=== PATIENT | male | born 1955 ===

== ENCOUNTER → 2020-07-12 13:21 | Outpatient (BNVA) | payer OTHER, SELFPAY | PROVIDERS: PCP Family Medicine; Visit Provider Urology ==

== ENCOUNTER 2021-01-01 13:03 | Outpatient (REF) | payer OTHER, SELFPAY | END 2021-01-01 13:04 | disposition home or self-care (01) | LOC: HO.LAB 13:03 | PROVIDERS: PCP Family Medicine; Visit Provider Internal Medicine | DX: Z20.822 Contact with and (suspected) exposure to COVID-19 (principal) | CPT/HCPCS: C9803; U0003; U0005 ==

== ENCOUNTER → 2021-02-28 09:45 | Outpatient (BNVA) | payer OTHER, SELFPAY | PROVIDERS: PCP Family Medicine; Visit Provider Urology ==

== ENCOUNTER → 2021-03-07 08:53 | Outpatient (BNVA) | payer OTHER, SELFPAY | PROVIDERS: PCP Family Medicine; Visit Provider Urology ==

== ENCOUNTER → 2021-09-11 08:53 | Outpatient (BNVA) | payer OTHER, SELFPAY | PROVIDERS: PCP Family Medicine; Visit Provider Urology | DX: E29.1 Testicular hypofunction (principal) ==

== ENCOUNTER → 2022-10-01 14:10 | Outpatient (BNVA) | payer OTHER, SELFPAY | PROVIDERS: PCP Family Medicine; Visit Provider Urology ==

== ENCOUNTER 2023-04-02 08:43 | Outpatient (AMB) | payer OTHER, SELFPAY ==
--- NOTE | 2023-04-02 08:55 | A.OFFVIS_ITS ---
Intake Intake Visit Reasons: 6M Labs(set) Intake Note: Patient is Present for Telephone Follow Up Labs Urology Med: Tadalafil, Testosterone Antibiotic Allergy: None Blood Thinner: None Allergies No Known Allergies [No Known Allergies*] Allergy (Verified 04/02/23 08:55) HPI HPI Comments History of Present Illness Details Woody is a pleasant male. He is a patient of Dr. Araujo. He is seen for following urologic conditions - hypogonadism - nephrolithiasis - erectile dysfunction Telemedicine Evaluation 15 min Consultation [facility] Jenna Video attempted Testosterone stable Hematocrit has been rising and is now borderline elevated at 53.3 Did discuss trial of Xyosted Prescription provided Six month follow-up lab work Hypogonadism Diagnosis number of years ago Failed AndroGel therapy Stable on injection therapy 0.4 cc every 1 weeks subq Injection day Friday - lab work should be or Friday Recent lab work - 07/09 T 1400, 01/09 T 356 2.7 51, 08/10 H 51, 03/12 627 P 2.5, 10/11 P 3.3, 04/12 692 2.8 53 Follow in 6 months with testosterone, PSA and CBC Nephrolithiasis Prior history asymptomatic stones Sample provided in 2018 calcium oxalate monohydrate Imaging - 02/08 renal ultrasound under no evidence of disease, 40 g prostate PFSH Medical History Rheumatoid arthritis Nocturia Renal stones BPH w/o urinary obs/LUTS Hypogonadism in male Surgical History History of cataract surgery History of colonoscopy Family History Father No problems noted. Mother No problems noted. Social History Alcohol intake: former Patient Tobacco Use Status: Former Tobacco user Review of Systems Const All systems reviewed & are unremarkable except as noted in HPI and below Reports no additional complaints Resp Reports no additional complaints GI Reports no additional complaints Reports as per HPI Musc Reports no additional complaints Physical Exam Telemedicine evaluation Appropriate responses Regular breathing rate and rhythm HEENT Head: Yes normal to inspection Ears: hearing grossly normal bilaterally Eyes General: appearance normal, both eyes and all related structures Neck Neck: Yes normal visual inspection Chest Chest palpation & inspection: normal inspection of the chest Resp Effort & Inspection: normal respiratory effort and able to speak in complete sentences Assessment & Plan Assessment & Plan (1) Elevated hematocrit: Code(s): R71.8 - Other abnormality of red blood cells (2) Hypogonadism in male: Code(s): E29.1 - Testicular hypofunction Plan Switch testosterone formulation to try to reduce hematocrit peak Orders: Orders Complete Blood Count no Diff 6 Months E29.1 - Testicular hypofunction Prostate Specific Antigen 6 Months E29.1 - Testicular hypofunction Testosterone, Total 6 Months E29.1 - Testicular hypofunction Medications: New testosterone enanthate (Xyosted) 75 mg (0.75 mL) subcut Q7D 3 mL 5RF 28 days Patient Instructions: Imaging studies, laboratory and physical exam results were discussed and reviewed in detail. No major barriers to patient understanding were identified. An opportunity to ask questions regarding the treatment plan was provided. All questions were answered. The patient expressed understanding and agreement with the above treatment plan. The patient is aware they should contact our office by phone for worsening of their current condition or the appearance of new urologic symptoms. Compliance is encouraged with any medications and followup testing that is ordered. It is a privilege to participate in the urologic care of your patient. If you have any questions or concerns regarding treatment for the above conditions, or other urologic issues, please do not hesitate to contact me. The office telephone contact is [phone]. This note is constructed using voice recognition software. While every effort has been made to ensure accuracy chocolate finisher operator errors may have been included. Yours sincerely, Dr Petros Gibson MD, [facility] - Urology Providers of Expert, Compassionate Care for the Genitourinary System Telehealth Telehealth Location of provider rendering services: practice address Location of patient: address on file Patient Identification confirmed using: Name, : Yes Telehealth method: video Patient verbally consented to treatment: Yes Patient verbally consented to billing insurance company: Yes Patient informed of any privacy concerns related to visit: Yes Coding Level of Care Code Tele Est Pt Level 4 (05521) Diagnoses Elevated hematocrit R71.8 Hypogonadism in male E29.1
== END 2023-04-02 09:57 | disposition home or self-care (01) ==
LOC: HO.HUSH 08:43
PROVIDERS: PCP Family Medicine; Visit Provider Urology
DX: R71.8 Other abnormality of red blood cells (principal); E29.1 Testicular hypofunction
CPT/HCPCS: 99214

== ENCOUNTER → 2023-04-02 08:43 | Outpatient (BNVA) | payer OTHER, SELFPAY | PROVIDERS: PCP Family Medicine; Visit Provider Urology ==

== ENCOUNTER → 2023-06-13 09:58 | Outpatient (BNVA) | payer OTHER, SELFPAY | PROVIDERS: PCP Family Medicine; Visit Provider Urology ==

== ENCOUNTER 2023-10-03 14:43 | Outpatient (AMB) | payer OTHER, SELFPAY ==
--- NOTE | 2023-10-03 15:17 | MHC.OFFVIS ---
Intake Visit Reasons: 6m/labs(set) Intake Note: Patient is Present for Follow Up Labs Urology Medication: Antibiotic Allergies: Blood Thinners: Allergies No Known Allergies [No Known Allergies*] Allergy (Verified 10/03/23 15:21) Medication List - Last Reconciled 10/03/23 by Petros Gibson MD etanercept mg subcut QWEEK folic acid 1 mg PO DAILY methotrexate sodium 20 mg PO QWEEK oxycodone 5 mg PO QID PRN prednisone 5 mg PO DAILY simvastatin 40 mg PO BEDTIME syringe with needle (BD Tuberculin Syringe) As directed once weekly syringe with needle As directed weekly tadalafil 20 mg PO DAILY 30 days testosterone enanthate 75 mg (0.5 mL) subcut QWEEK 28 days zolpidem 10 mg PO BEDTIME PRN HPI Comments Details: Woody is a pleasant male. He is a patient of Dr. Araujo. He is seen for following urologic conditions - hypogonadism - nephrolithiasis - erectile dysfunction Wonderful response desire stent Hematocrit decline 51 Testosterone 600 Six-month follow-up lab work Hypogonadism Diagnosis number of years ago Failed AndroGel therapy Stable on injection therapy 0.4 cc every 1 weeks subq Injection day Friday - lab work should be or Friday Recent lab work - 07/09 T 1400, 01/09 T 356 2.7 51, 08/10 H 51, 03/12 627 P 2.5, 10/11 P 3.3, 04/12 692 2.8 09/11 589 2.7 Follow in 6 months with testosterone, PSA and CBC Nephrolithiasis Prior history asymptomatic stones Sample provided in 2018 calcium oxalate monohydrate Imaging - 02/08 renal ultrasound under no evidence of disease, 40 g prostate PFSH Medical History Rheumatoid arthritis Nocturia Renal stones BPH w/o urinary obs/LUTS Hypogonadism in male Surgical History History of cataract surgery History of colonoscopy Family History Father No problems noted. Mother No problems noted. Social History Alcohol intake: former Patient Tobacco Use Status: Former Tobacco user Review of Systems Const Denies chills and Denies fever(s) Card Reports no additional complaints and Denies syncope Resp Denies cough GI Denies abdominal pain and Denies heartburn Reports as per HPI and Denies change in libido Neuro Denies syncope Psych Denies change in libido Endo Denies change in libido Physical Exam Const General: cooperative, healthy appearing, comfortable and no acute distress Orientation/consciousness: patient oriented x3 HEENT Face and sinus: Yes normal facial exam Mouth: moist mucous membranes Neck Neck: Yes normal visual inspection, Yes full ROM and Yes trachea midline Chest Chest palpation & inspection: normal inspection of the chest Resp Effort & Inspection: normal respiratory effort, able to speak in complete sentences and no respiratory distress GI Inspection: Yes normal to inspection Back/Spine/Pelvis Cervical Spine: normal cervical lordosis Thoracic/Lumbar Spine: thoracic and lumbar spine normal to inspection Skin General skin exam: no rashes or lesions noted Neuro General: patient oriented x3, gait normal, tone normal and moves all extremities Extrem General: Yes normal to inspection and Yes capillary refill normal Assessment & Plan Assessment & Plan (1) Hypogonadism in male: Code(s): E29.1 - Testicular hypofunction Category: Medical (2) Elevated hematocrit: Code(s): R71.8 - Other abnormality of red blood cells Category: Medical Plan Six-month follow-up labs tele Refill provided Orders: Orders Testosterone, Total 6 Months E29.1 - Testicular hypofunction Complete Blood Count no Diff 6 Months E29.1 - Testicular hypofunction Prostate Specific Antigen 6 Months E29.1 - Testicular hypofunction Medications: Refilled testosterone enanthate 75 mg (0.5 mL) subcut QWEEK 28 days 2 mL 5RF E29.1 - Testicular hypofunction Patient Instructions: Imaging studies, laboratory and physical exam results were discussed and reviewed in detail. No major barriers to patient understanding were identified. An opportunity to ask questions regarding the treatment plan was provided. All questions were answered. The patient expressed understanding and agreement with the above treatment plan. The patient is aware they should contact our office by phone for worsening of their current condition or the appearance of new urologic symptoms. Compliance is encouraged with any medications and followup testing that is ordered. It is a privilege to participate in the urologic care of your patient. If you have any questions or concerns regarding treatment for the above conditions, or other urologic issues, please do not hesitate to contact me. The office telephone contact is [phone]. This note is constructed using voice recognition software. While every effort has been made to ensure accuracy bonding machine tender errors may have been included. Yours sincerely, Dr Petros Gibson MD, [facility] - Urology Providers of Expert, Compassionate Care for the Genitourinary System Coding Level of Care Code Est Pt Level 3 (73067) Diagnoses Hypogonadism in male E29.1 Elevated hematocrit R71.8
== END 2023-10-03 15:38 | disposition home or self-care (01) ==
PROVIDERS: PCP Family Medicine; Visit Provider Urology
DX: E29.1 Testicular hypofunction (principal); R71.8 Other abnormality of red blood cells
CPT/HCPCS: 99213

== ENCOUNTER → 2023-10-03 14:43 | Outpatient (BNVA) | payer OTHER, SELFPAY | PROVIDERS: PCP Family Medicine; Visit Provider Urology ==

== ENCOUNTER 2024-04-02 09:13 | Outpatient (AMB) | payer OTHER, SELFPAY ==
--- NOTE | 2024-04-02 09:13 | MHC.OFFVIS ---
Intake Visit Reasons: 6M Testosterone/PSA(set)Testo done early Intake Note: Patient is present for 6M TESTOSTERONE/PSA Urology Medication:TADALAFIL,TESTOSTERONE Antibiotic Allergy:NONE Blood Thinner:NONE Hvac Engineer Required: No Allergies No Known Allergies [No Known Allergies*] Allergy (Verified 04/02/24 09:14) HPI Comments Details: Woody is a pleasant male. He is a patient of Dr. Araujo. 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 Stable on injection therapy 0.4 cc every 1 weeks subq Injection day Friday - lab work should be or Friday Recent lab work - 07/09 T 1400, 01/09 T 356 2.7 51, 08/10 H 51, 03/12 627 P 2.5, 10/11 P 3.3, 04/12 692 2.8 09/11 589 2.7, 12/12 665 Follow in 6 months with testosterone, PSA and CBC Nephrolithiasis Prior history asymptomatic stones Sample provided in 2018 calcium oxalate monohydrate Imaging - 02/08 renal ultrasound under no evidence of disease, 40 g prostate PFSH Medical History Rheumatoid arthritis Nocturia Renal stones BPH w/o urinary obs/LUTS Hypogonadism in male Surgical History History of cataract surgery History of colonoscopy Family History Father No problems noted. Mother No problems noted. Social History Alcohol intake: former Patient Tobacco Use Status: Former Tobacco user Review of Systems Const All systems reviewed & are unremarkable except as noted in HPI and below Reports no additional complaints Resp Reports no additional complaints GI Reports no additional complaints Reports as per HPI Musc Reports no additional complaints Physical Exam Telemedicine evaluation Appropriate responses Regular breathing rate and rhythm HEENT Head: Yes normal to inspection Ears: hearing grossly normal bilaterally Eyes General: appearance normal, both eyes and all related structures Neck Neck: Yes normal visual inspection Chest Chest palpation & inspection: normal inspection of the chest Resp Effort & Inspection: normal respiratory effort and able to speak in complete sentences Telehealth Telehealth Telehealth Platform: [employer] Location of provider rendering services: practice address Location of patient: address on file Patient Identification confirmed using: Name, : Yes Telehealth method: video Patient verbally consented to treatment: Yes Patient verbally consented to billing insurance company: Yes Patient informed of any privacy concerns related to visit: Yes Minutes spent on Phone/Video with Pt.: 15 Assessment & Plan Assessment & Plan (1) Hypogonadism in male: Code(s): E29.1 - Testicular hypofunction Category: Medical Plan Six-month follow-up lab work office Orders: Orders Prostate Specific Antigen 6 Months E29.1 - Testicular hypofunction Testosterone, Total 6 Months E29.1 - Testicular hypofunction Complete Blood Count no Diff 6 Months E29.1 - Testicular hypofunction Patient Instructions: Imaging studies, laboratory and physical exam results were discussed and reviewed in detail. No major barriers to patient understanding were identified. An opportunity to ask questions regarding the treatment plan was provided. All questions were answered. The patient expressed understanding and agreement with the above treatment plan. The patient is aware they should contact our office by phone for worsening of their current condition or the appearance of new urologic symptoms. Compliance is encouraged with any medications and followup testing that is ordered. It is a privilege to participate in the urologic care of your patient. If you have any questions or concerns regarding treatment for the above conditions, or other urologic issues, please do not hesitate to contact me. The office telephone contact is [phone]. This note is constructed using voice recognition software. While every effort has been made to ensure accuracy advertising manager errors may have been included. Yours sincerely, Dr Petros Gibson MD, [facility] - Urology Providers of Expert, Compassionate Care for the Genitourinary System Coding Level of Care Code Tele Est Pt Level 3 (65612) Diagnoses Hypogonadism in male E29.1
== END 2024-04-02 10:37 | disposition home or self-care (01) ==
LOC: HO.HUSH 09:13
PROVIDERS: PCP Family Medicine; Visit Provider Urology
DX: E29.1 Testicular hypofunction (principal)
CPT/HCPCS: 99213

== ENCOUNTER 2024-10-05 09:35 | Outpatient (AMB) | payer OTHER, SELFPAY ==
--- NOTE | 2024-10-05 10:28 | MHC.OFFVIS ---
Intake Visit Reasons: Six-month follow-up lab work Intake Note: Patient is present for 6M/LABS Urology Medication:TADALAFIL,TESTOSTERONE Antibiotic Allergy:NONE Blood Thinner:NONE [employer] Fishing Crew Member Required: No Allergies No Known Allergies [No Known Allergies*] Allergy (Verified 10/05/24 10:32) HPI Comments Details: Woody is a pleasant male. He is a patient of Dr. Araujo. 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 Stable on injection therapy 0.4 cc every 1 weeks subq Injection day Friday - lab work should be or Friday Recent lab work - 07/09 T 1400, 01/09 T 356 2.7 51, 08/10 H 51, 03/12 627 P 2.5, 10/11 P 3.3, 04/12 692 2.8 09/11 589 2.7, 12/12 665, 10/13 P 2.9 50 Follow in 6 months with testosterone, PSA and CBC Nephrolithiasis Prior history asymptomatic stones Sample provided in 2018 calcium oxalate monohydrate Imaging - 02/08 renal ultrasound under no evidence of disease, 40 g prostate PFSH Medical History Rheumatoid arthritis Nocturia Renal stones BPH w/o urinary obs/LUTS Hypogonadism in male Surgical History History of cataract surgery History of colonoscopy Family History Father No problems noted. Mother No problems noted. Social History Alcohol intake: former Patient Tobacco Use Status: Former Tobacco user Review of Systems Const Denies chills and Denies fever(s) Card Reports no additional complaints and Denies syncope Resp Denies cough GI Denies abdominal pain and Denies heartburn Reports as per HPI and Denies change in libido Neuro Denies syncope Psych Denies change in libido Endo Denies change in libido Physical Exam Const General: cooperative, healthy appearing, comfortable and no acute distress Orientation/consciousness: patient oriented x3 HEENT Face and sinus: Yes normal facial exam Mouth: moist mucous membranes Neck Neck: Yes normal visual inspection, Yes full ROM and Yes trachea midline Chest Chest palpation & inspection: normal inspection of the chest Resp Effort & Inspection: normal respiratory effort, able to speak in complete sentences and no respiratory distress GI Inspection: Yes normal to inspection Back/Spine/Pelvis Cervical Spine: normal cervical lordosis Thoracic/Lumbar Spine: thoracic and lumbar spine normal to inspection Skin General skin exam: no rashes or lesions noted Neuro General: patient oriented x3, gait normal, tone normal and moves all extremities Extrem General: Yes normal to inspection and Yes capillary refill normal Assessment & Plan Assessment & Plan (1) Hypogonadism in male: Code(s): E29.1 - Testicular hypofunction Category: Medical (2) Renal stones: Code(s): N20.0 - Calculus of kidney Category: Medical Plan Six-month follow-up testosterone surveillance tele Orders: Orders Testosterone, Total 6 Months E29.1 - Testicular hypofunction Prostate Specific Antigen 6 Months E29.1 - Testicular hypofunction Complete Blood Count no Diff 6 Months E29.1 - Testicular hypofunction Patient Instructions: This note is constructed using voice recognition software. While every effort has been made to ensure accuracy plastics process hand errors may have been included. Imaging studies, laboratory and physical exam results were discussed and reviewed in detail. No major barriers to patient understanding were identified. An opportunity to ask questions regarding the treatment plan was provided. All questions were answered. The patient expressed understanding and agreement with the above treatment plan. The patient is aware they should contact our office by phone for worsening of their current condition or the appearance of new urologic symptoms. Compliance is encouraged with any medications and followup testing that is ordered. It is a privilege to participate in the urologic care of your patient. If you have any questions or concerns regarding treatment for the above conditions, or other urologic issues, please do not hesitate to contact me. The office telephone contact is [phone]. Sincerely, Dr Petros Gibson MD, [facility] - Urology Compassionate Specialist Care for the Genitourinary System Coding Level of Care Code Est Pt Level 4 (11376) Complex EM visit Add On G2211 Diagnoses Hypogonadism in male E29.1 Renal stones N20.0
== END 2024-10-05 10:44 | disposition home or self-care (01) ==
LOC: HO.HUSH 09:36
PROVIDERS: PCP Family Medicine; Visit Provider Urology
DX: E29.1 Testicular hypofunction (principal); N20.0 Calculus of kidney
CPT/HCPCS: 99214; G2211

== ENCOUNTER → 2024-10-05 09:35 | Outpatient (BNVA) | payer OTHER, SELFPAY | PROVIDERS: PCP Family Medicine; Visit Provider Urology ==

== ENCOUNTER 2025-04-05 10:36 | Outpatient (AMB) | payer OTHER, SELFPAY ==
--- NOTE | 2025-04-05 10:36 | MHC.OFFVIS ---
Intake Visit Reasons: 6m/PSA/Testo/CBC/SET Intake Note: Patient is present for 6M/LABS Urology Medication:TADALAFIL,TESTOSTERONE Antibiotic Allergy:NONE Blood Thinner:NONE Labs done : 03/09/25 , Total Testosterone 58.8, PSA 3.5 Bottle Gauger Required: No Accompanied by: Self / Same As Patient Allergies No Known Allergies (No Known Allergies*) Allergy (Verified 04/05/25 10:37) HPI Comments Details: Woody is a pleasant male. He is a patient of Dr. Araujo. 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 Stable on injection therapy 0.4 cc every 1 weeks subq Injection day Friday - lab work should be or Friday Recent lab work - 07/09 T 1400, 01/09 T 356 2.7 51, 08/10 H 51, 03/12 627 P 2.5, 10/11 P 3.3, 04/12 692 2.8 09/11 589 2.7, 12/12 665, 10/13 P 2.9 50, 04/14 600 3.5 Follow in 6 months with testosterone, PSA and CBC Nephrolithiasis Prior history asymptomatic stones Sample provided in 2018 calcium oxalate monohydrate Imaging - 02/08 renal ultrasound under no evidence of disease, 40 g prostate PFSH Medical History Rheumatoid arthritis Nocturia Renal stones BPH w/o urinary obs/LUTS Hypogonadism in male Surgical History History of cataract surgery History of colonoscopy Family History Father No problems noted. Mother No problems noted. Social History Alcohol intake: former Patient Tobacco Use Status: Former Tobacco user Review of Systems Const All systems reviewed & are unremarkable except as noted in HPI and below Reports no additional complaints Resp Reports no additional complaints GI Reports no additional complaints Reports as per HPI Musc Reports no additional complaints Physical Exam Telemedicine evaluation Appropriate responses Regular breathing rate and rhythm HEENT Head: Yes normal to inspection Ears: hearing grossly normal bilaterally Eyes General: appearance normal, both eyes and all related structures Neck Neck: Yes normal visual inspection Chest Chest palpation & inspection: normal inspection of the chest Resp Effort & Inspection: normal respiratory effort and able to speak in complete sentences Telehealth Telehealth Telehealth Platform: [employer] Location of provider rendering services: practice address Location of patient: address on file Patient Identification confirmed using: Name, : Yes Telehealth method: video Patient verbally consented to treatment: Yes Patient verbally consented to billing insurance company: Yes Patient informed of any privacy concerns related to visit: Yes Minutes spent on Phone/Video with Pt.: 15 Assessment & Plan Assessment & Plan (1) Hypogonadism in male: Code(s): E29.1 - Testicular hypofunction Category: Medical Plan Continue current testosterone dosing Orders: Orders Prostate Specific Antigen 5 Months E29.1 - Testicular hypofunction Testosterone, Total 5 Months E29.1 - Testicular hypofunction Hematocrit 5 Months E29.1 - Testicular hypofunction Patient Instructions: This note is constructed using voice recognition software. While every effort has been made to ensure accuracy computer forensics technician errors may have been included. Imaging studies, laboratory and physical exam results were discussed and reviewed in detail. No major barriers to patient understanding were identified. An opportunity to ask questions regarding the treatment plan was provided. All questions were answered. The patient expressed understanding and agreement with the above treatment plan. The patient is aware they should contact our office by phone for worsening of their current condition or the appearance of new urologic symptoms. Compliance is encouraged with any medications and followup testing that is ordered. It is a privilege to participate in the urologic care of your patient. If you have any questions or concerns regarding treatment for the above conditions, or other urologic issues, please do not hesitate to contact me. The office telephone contact is [phone]. Sincerely, Dr Petros Gibson MD, [facility] - Urology Compassionate Specialist Care for the Genitourinary System Coding Level of Care Code Tele Est Pt Level 3 (75202) Add On Problem Visit Only Diagnoses Hypogonadism in male E29.1
--- OUTSIDE RECORDS SUMMARY | 2025-04-05 13:22 | XMS_ITS | Patient Health Record ---
Author Organization [facility] Address [address] [place] [id number] Care Team Providers Care Process Planner Name Role Phone Fermin Phelan Jr Reason For Referral No Information Plan Of Treatment No Information
== END 2025-04-05 14:20 | disposition home or self-care (01) ==
LOC: HO.HUSH 10:36
PROVIDERS: PCP Family Medicine; Visit Provider Urology
DX: E29.1 Testicular hypofunction (principal)
CPT/HCPCS: 99213; G2211